=== PATIENT | female | born 1980 | race Caucasian/White ===

== ENCOUNTER 2017-05-15 16:35 | Outpatient (CLI) | payer BC | END 2017-05-15 16:36 | disposition home or self-care (01) | LOC: BICRAD 16:35 | PROVIDERS: ATTEND Physician Assistant Medical | DX: R05 Cough (principal); R50.9 Fever, unspecified; J18.9 Pneumonia, unspecified organism | CPT/HCPCS: 71046 ==

== ENCOUNTER 2017-06-27 08:34 | Outpatient (CLI) | payer BC | END 2017-06-27 08:35 | disposition home or self-care (01) | LOC: BICRAD 08:34 | PROVIDERS: ATTEND Physician Assistant Medical | DX: J18.9 Pneumonia, unspecified organism (principal) | CPT/HCPCS: 71046 ==